=== PATIENT | female | born 1960 | race Caucasian/White ===

== ENCOUNTER 2017-04-20 07:35 | Day surgery (SDC) | payer OTHER ==
[~2017-04-20 07:35] MED LIST: ADVIL PO; ZANAFLEX 4 MG TA4 MG PO
== END 2017-04-20 10:27 | disposition home or self-care (01) ==
LOC: SDC 07:35
PROVIDERS: Orthopaedic Surgery
PROC: 3E0R3BZ Introduction of Anesthetic Agent into Spinal Canal, Percutaneous Approach (ICD-10-PCS; 2017-04-20)
PROC: B01BYZZ Fluoroscopy of Spinal Cord using Other Contrast (ICD-10-PCS; 2017-04-20)
PROC: 3E0R33Z Introduction of Anti-inflammatory into Spinal Canal, Percutaneous Approach (ICD-10-PCS; principal; 2017-04-20 08:45)
DX: M54.16 Radiculopathy, lumbar region (principal); Z79.1 Long term (current) use of non-steroidal anti-inflammatories (NSAID); Z79.899 Other long term (current) drug therapy; Z98.890 Other specified postprocedural states
CPT/HCPCS: 77003; 84703; A9270-GY; J1040; J2250; J3010; Q9967

== ENCOUNTER 2017-05-03 07:13 | Day surgery (SDC) | payer OTHER | END 2017-05-03 10:38 | disposition home or self-care (01) | LOC: SDC 07:13 | PROVIDERS: Orthopaedic Surgery | PROC: 3E0S3BZ Introduction of Anesthetic Agent into Epidural Space, Percutaneous Approach (ICD-10-PCS; 2017-05-03) | PROC: 3E0S33Z Introduction of Anti-inflammatory into Epidural Space, Percutaneous Approach (ICD-10-PCS; principal; 2017-05-03 08:00) | DX: M54.16 Radiculopathy, lumbar region (principal); M54.5 Low back pain; Z98.890 Other specified postprocedural states; Z98.891 History of uterine scar from previous surgery; Z79.899 Other long term (current) drug therapy | CPT/HCPCS: 84703; J1040; J2250; J2405; J3010; Q9967 ==